=== PATIENT | female | born 1950 | race Caucasian/White ===

== ENCOUNTER 2017-01-05 08:24 | Emergency (ER) | payer MEDICARE, OTHER ==
[~2017-01-05] VITALS: Ht 160 cm; Wt 71.3 kg
[~2017-01-05 08:24] MED LIST: LISI-420 PO; [UNRECOGNIZED DRUG - CODE] PO
[2017-01-05 08:28] VITALS: BP 133/77
--- NOTE | 2017-01-05 08:38 | NUR ---
PATIENT PRESENTS TO ED WITH DYSURIA, BURNING PAIN UPON MICTURATING X2 DAYS, FREQUENCY AND URNGENCY . PT STATES . DENIES N/V/D; SKIN IS PINK/WARM/DRY; AAOX4 WITH EVEN AND STEADY GAIT; LUNGS CLEAR BL; HR EVEN AND REGULAR; PT DENIES ANY FEVER, CP, SOB, OR COUGH AT THIS TIME; PATIENT STATES PAIN OF 9/10 AT THIS TIME; VSS; PATIENT POSITIONED FOR COMFORT; HOB ELEVATED; BEDRAILS UP X2; BED DOWN. ER MD MADE AWARE OF PT STATUS.
[2017-01-05 10:00] VITALS: BP 132/84
== END 2017-01-05 10:00 | disposition home or self-care (01) ==
LOC: MED 08:24
DX: N39.0 Urinary tract infection, site not specified (principal); E11.9 Type 2 diabetes mellitus without complications; I10 Essential (primary) hypertension; Z90.710 Acquired absence of both cervix and uterus; Z85.42 Personal history of malignant neoplasm of other parts of uterus
CPT/HCPCS: 82948; 99283

== ENCOUNTER 2017-09-02 15:02 | Emergency (ER) | payer MEDICARE, OTHER ==
[~2017-09-02] VITALS: Ht 160 cm; Wt 73.9 kg
[2017-09-02 15:04] VITALS: BP 149/79
--- NOTE | 2017-09-02 15:08 | NUR ---
REPORT GIVEN TO MARTIN MARSHALL.
--- NOTE | 2017-09-02 15:10 | NUR ---
66f bib self with c/o painful urination x 2 days. Patient denies any hematuria, n/v/d, or fevers. Pt is aox4 with steady gait. GCS=15. RR are even and unlabored. Awaiting er md hines. VSS. Will continue to monitor.
[2017-09-02 15:55] LABS: APPEARANCE,URINE HAZY (CLEAR); BILIRUBIN,URINE NEGATIVE (NEGATIVE); BLOOD, URINE 1+ (NEGATIVE); COLOR,URINE YELLOW (YELLOW); LEUKOCYTE ESTERASE ,URINE 2+ (NEGATIVE); NITRITE, URINE NEGATIVE (NEGATIVE); UGLUCOSE NEGATIVE (NEGATIVE)
[2017-09-02 16:07] LABS: RBC,URINE 0-5 (RARE) /HPF (0-5); WBC,URINE 80-100 /HPF (0-5)
[2017-09-02] MEDS ORDERED: PHENAZOPYRIDINE 100 MG TAB PO ONE (16:10)
[2017-09-02] MEDS ORDERED: cefTRIAXone 1,000 MG in LIDOCAINE MPF 1% - **ER/OR** 2.1 ML IM ONE (16:10)
[2017-09-02] MEDS ORDERED: cefTRIAXone 1,000 MG VIAL ONE (16:28)
[2017-09-02] MEDS ORDERED: LIDOCAINE 1% 50 ML ONE (16:30)
--- NOTE | 2017-09-02 17:03 | NUR ---
Patient discharged with v/s stable. Written and verbal after care instructions given and explained. Patient alert, oriented and verbalized understanding of instructions. Ambulatory with steady gait. All questions addressed prior to discharge. ID band removed. Patient advised to follow up with PMD. Rx of Macrobid and phenazopyridine hydrochloride given. Patient educated on indication of medication including possible reaction and side effects. Opportunity to ask questions provided and answered.
[2017-09-02 17:04] VITALS: BP 136/63
== END 2017-09-02 17:03 | disposition home or self-care (01) ==
LOC: MED 15:02
DX: N39.0 Urinary tract infection, site not specified (principal); E11.9 Type 2 diabetes mellitus without complications; I10 Essential (primary) hypertension; Z79.899 Other long term (current) drug therapy
CPT/HCPCS: 81001; 87086; 87186; 96372; 99284; J0696; J2001

== ENCOUNTER 2017-11-20 16:41 | Emergency (ER) | payer MEDICARE, OTHER ==
[~2017-11-20] VITALS: Ht 160 cm; Wt 73.9 kg
[2017-11-20 16:56] VITALS: BP 170/89
--- NOTE | 2017-11-20 17:01 | NUR ---
er md mendoza in triage evaluating patient
--- NOTE | 2017-11-20 17:05 | NUR ---
patient to chair in view of triage room to monitor patient. patient instructed to inform triage nurse in change of status. er md mendoza and propellant charge loader oh davis made aware.
--- NOTE | 2017-11-20 17:10 | NUR ---
bib daughter with c/o "facial stiffness" since today around with hypertension. Clear speech. Facial symmetry to left side of face. Patient with steady gait. GCS=15. PERRLA. Equal refrigerator room clerk to bl arms and equal push/pull to bl legs. Patient denies any headache. PT DENIES SOB, FEVER, CP AT THIS MOMENT. MD MADE AWARE OF PT STATUS, FAMILY AT BEDSIDE.
[2017-11-20] MEDS ORDERED: DEXAMETHASONE 10 MG/ML VIAL IM ONE (17:15)
--- NOTE | 2017-11-20 17:39 | NUR ---
PT TO CT VIA WHEELCHAIR WITH NHUNG MOORE
[2017-11-20 19:01] VITALS: BP 143/89
--- NOTE | 2017-11-20 19:02 | NUR ---
Patient discharged with v/s stable. Written and verbal after care instructions given and explained. Patient alert, oriented and verbalized understanding of instructions. Ambulatory with steady gait. All questions addressed prior to discharge. ID band removed. Patient advised to follow up with PMD. Rx of LACRILUBE/ACYCLOVIR/PREDNISONE given. Patient educated on indication of medication including possible reaction and side effects. Opportunity to ask questions provided and answered.
== END 2017-11-20 19:02 | disposition home or self-care (01) ==
LOC: MED 16:41
DX: G51.0 Bell's palsy (principal); I10 Essential (primary) hypertension; E11.9 Type 2 diabetes mellitus without complications; Z79.899 Other long term (current) drug therapy
CPT/HCPCS: 70450; 96372; 99284; J1100

== ENCOUNTER 2019-09-17 14:56 | Emergency (ER) | payer MEDICARE, OTHER ==
[~2019-09-17] VITALS: Ht 160 cm; Wt 70.3 kg
[2019-09-17 15:05] VITALS: BP 156/71
--- NOTE | 2019-09-17 15:50 | NUR ---
C/O HEADACHE X 3 DAYS. PT STATES SHE ALSO HAS A FORHEAD RASH. DENIES TRAUMA OR N/V/D. UNSURE HOW RASH STARTED. DENIES NEW SOAP, FOODS, OR ALLERGIES. STATES RASH IS VERY PAIN FUL TO TOUCH. PT ALERT AND AWAKE, PRIMARILY LATVIAN SPEAKING. AMBULATORY MED HX: HTN
--- NOTE | 2019-09-17 15:58 | NUR ---
DR BUNDY AT BEDSIDE
[2019-09-17 16:06] VITALS: BP 143/67
--- NOTE | 2019-09-17 16:06 | NUR ---
Patient discharged with v/s stable. Written and verbal after care instructions given and explained IN ITALIAN/ICELANDIC. Patient alert, oriented and verbalized understanding of instructions. Ambulatory with steady gait. All questions addressed prior to discharge. ID band removed. Patient advised to follow up with PMD. Rx of NORCO AND ACYCLOVIR given. Patient educated on indication of medication including possible reaction and side effects. Opportunity to ask questions provided and answered. PT STATES NO FURTHER QUESTIONS
== END 2019-09-17 16:06 | disposition home or self-care (01) ==
LOC: MED 14:56
DX: B02.9 Zoster without complications (principal); E11.9 Type 2 diabetes mellitus without complications; I10 Essential (primary) hypertension; G51.0 Bell's palsy; Z90.710 Acquired absence of both cervix and uterus; Z79.84 Long term (current) use of oral hypoglycemic drugs; Z79.899 Other long term (current) drug therapy
CPT/HCPCS: 99283

== ENCOUNTER 2019-12-17 18:02 | Emergency (ER) | payer MEDICARE, OTHER ==
[~2019-12-17] VITALS: Ht 167.6 cm; Wt 61.2 kg
[2019-12-17 18:10] VITALS: BP 137/75
--- NOTE | 2019-12-17 18:14 | NUR ---
69 Y/O FEMALE C/O DYSURIA AND FREQUENCY X1 DAY, PAIN IS 8/10 DURING URINATION. SLIGHT FLANK PAIN. DENIES ANY N/V/D. AFEBRILE PMH: DM, HTN NKA
--- NOTE | 2019-12-17 18:34 | NUR ---
Dr. Coles assessing pt at bedside.
[2019-12-17] MEDS ORDERED: PHENAZOPYRIDINE 100 MG TAB PO ONE (18:40)
[2019-12-17 18:50] LABS: BILIRUBIN,URINE NEGATIVE (NEGATIVE); BLOOD, URINE 2+ (NEGATIVE); COLOR,URINE YELLOW (YELLOW); LEUKOCYTE ESTERASE ,URINE 2+ (NEGATIVE); NITRITE, URINE NEGATIVE (NEGATIVE); UGLUCOSE NEGATIVE (NEGATIVE)
[2019-12-17 18:54] VITALS: BP 137/75
--- NOTE | 2019-12-17 18:54 | NUR ---
Patient discharged with v/s stable. Written and verbal after care instructions given and explained. Patient alert, oriented and verbalized understanding of instructions. Ambulatory with steady gait. All questions addressed prior to discharge. ID band removed. Patient advised to follow up with PMD. Rx of KEFLEX, PHENAZOPYRIDINE given. Patient educated on indication of medication including possible reaction and side effects. Opportunity to ask questions provided and answered.
[2019-12-17 18:59] LABS: WBC,URINE 80-100 /HPF (0-5)
[2019-12-17 19:00] LABS: APPEARANCE,URINE SLIGHTLY CLOUDY (CLEAR); RBC,URINE 11-20 (MOD) /HPF (0-5)
--- NOTE | 2019-12-20 20:41 | NUR ---
late entry---- Dr. Nicholson made aware of Urine C/S results. treatment appropriate. no further action necessary.
== END 2019-12-17 18:54 | disposition home or self-care (01) ==
LOC: MED 18:02
DX: N39.0 Urinary tract infection, site not specified (principal); E11.9 Type 2 diabetes mellitus without complications; I10 Essential (primary) hypertension; Z90.710 Acquired absence of both cervix and uterus; Z79.84 Long term (current) use of oral hypoglycemic drugs; Z79.899 Other long term (current) drug therapy
CPT/HCPCS: 81001; 87086; 87186; 99283

== ENCOUNTER 2020-07-31 11:51 | Emergency (ER) | payer MEDICARE, OTHER ==
[~2020-07-31] VITALS: Ht 162.6 cm; Wt 72.6 kg
[~2020-07-31 11:51] MED LIST changes: -LISI-420 PO; +LISI20TA29 PO
--- NOTE | 2020-07-31 11:54 | NUR ---
Patient to bed 10. RN evaluating the patient at bedside.
--- NOTE | 2020-07-31 12:00 | NUR ---
69 Y/O FEMALE BIB DAUGHTER C/O CHEST PAIN X3 DAYS. PT WENT TO [facility] TODAY AND WAS SENT HERE FOR EVALUATION. PT RATES PAIN 7/10 THAT IS PRESSURE LIKE AND RADIATES TO R SHOULDER/BACK. PT WAS GIVEN 362MG ASPIRIN AT [facility]. PT DENIES N/V/SOB. PT IS A/O X4 WITH EVEN AND UNLABORED RESPIRATIONS. PT IN GOWN AND ATTACHED TO MAIL CLERK BILLS. BED IN LOWEST POSITION, BRAKES LOCKED, X1 SIDERAIL UP. NAURUAN SPEAKING PMH: HTN, HYPOTHYTROIDISM, HLD NKDA
--- NOTE | 2020-07-31 12:01 | NUR ---
EMT AT BEDSIDE FOR EKG
[2020-07-31 12:02] VITALS: BP 166/56
--- NOTE | 2020-07-31 12:16 | NUR ---
DR SILVA AT BEDSIDE
--- NOTE | 2020-07-31 12:46 | NUR ---
telemetry tech at bedside.
[2020-07-31 12:48] LABS: BASOPHILS % (AUTO) 0.7 % (0.0-2.0); EOSINOPHILS # (AUTO) 0.2 K/uL (0-0.4); EOSINOPHILS % (AUTO) 2.7 % (0.0-4.0); HEMATOCRIT 39.3 % (36-48); HEMOGLOBIN 13.3 g/dL (12.0-16.0); LYMPHOCYTES # (AUTO) 1.8 K/uL (2.5-16.5); LYMPHOCYTES % (AUTO) 32.5 % (20.5-51.1); MEAN CORPUSCULAR HEMOGLOBIN 29 pg (27-31); MEAN CORPUSCULAR HGB CONC 34 g/dL (33-37); MEAN CORPUSCULAR VOLUME 86.1 fL (80-94); MONOCYTES # (AUTO) 0.3 K/uL (0.8-1.0); NEUTROPHILS # (AUTO) 3.3 K/uL (1.8-7.7); NEUTROPHILS % (AUTO) 59.1 % (42.2-75.2); PLATELET COUNT (AUTO) 183 K/uL (140-450); RED BLOOD CELL COUNT(AUTO) 4.57 MIL/uL (4.20-5.40); RED CELL DISTRIBUTION WIDTH 13.2 % (11.6-13.7); WHITE BLOOD COUNT (AUTO) 5.6 K/uL (4.8-10.8)
[2020-07-31 13:03] LABS: ALBUMIN 3.8 g/dL (3.4-5.0); ANION GAP 7.7 (8-16); CARBON DIOXIDE 31.5 mmol/L (21-32); CREATININE 0.9 mg/dL (0.6-1.3); POTASSIUM 4.2 mmol/L (3.5-5.1); TOTAL BILIRUBIN 0.3 mg/dL (0.0-1.0)
--- NOTE | 2020-07-31 13:20 | NUR ---
covering for Primary RN Kamini. pt is currently a/o x 4, gcs 15. VSS. does not appear to be in any distress at this moment.
--- NOTE | 2020-07-31 13:42 | NUR ---
PT AMBULATED TO RESTROOM WITH EVEN STEADY GAIT. PT BACK IN BED AND ATTACHED TO MONITOR.
[2020-07-31] MEDS ORDERED: IBUP-2213 PO (14:47)
[2020-07-31 15:09] VITALS: BP 136/54
== END 2020-07-31 15:10 | disposition home or self-care (01) ==
LOC: MED 11:51
DX: R07.89 Other chest pain (principal); I10 Essential (primary) hypertension; E03.9 Hypothyroidism, unspecified
CPT/HCPCS: 36415; 71045; 80053; 83880; 84484; 85025; 93005; 99285

== ENCOUNTER 2021-06-07 07:20 | Emergency (ER) | payer MEDICARE, OTHER ==
[~2021-06-07] VITALS: Ht 160 cm; Wt 72.1 kg
[~2021-06-07 07:20] MED LIST changes: +IBUP-2213 PO
[2021-06-07 07:24] VITALS: BP 137/73
--- NOTE | 2021-06-07 07:35 | NUR ---
70 Y/O F AMBULATED TO BED 3, C/O PAINFUL URINATION X5 DAYS WITH FREQUENCY. DENIES BLOOD IN URINE. PT SENT TO RESTROOM FOR URINE COLLECTION. MEDHX: DM, HTN, HYPOTHYROID NKA
--- NOTE | 2021-06-07 07:45 | NUR ---
URINE DIP, AND SENT URINE TO LAB AT THIS TIME HANDED TO HELP DESK REP
[2021-06-07] MEDS ORDERED: CEPH-588 PO (07:52)
[2021-06-07 07:59] LABS: APPEARANCE,URINE CLOUDY (CLEAR); BILIRUBIN,URINE NEGATIVE (NEGATIVE); BLOOD, URINE 2+ (NEGATIVE); COLOR,URINE YELLOW (YELLOW); LEUKOCYTE ESTERASE ,URINE 2+ (NEGATIVE); NITRITE, URINE POSITIVE (NEGATIVE); PH,URINE 5.5 (5.0-9.0); UGLUCOSE TRACE (NEGATIVE)
[2021-06-07 08:00] VITALS: BP 137/73
[2021-06-07] MEDS ORDERED: cefTRIAXone 1,000 MG in LIDOCAINE MPF 1% 2.1 ML IM ONE (08:00)
[2021-06-07 08:08] LABS: RBC,URINE 11-20 (MOD) /HPF (0-5); WBC,URINE >25 (MANY) /HPF (0-5)
[2021-06-07 08:09] LABS: CALCIUM OXALATE CRYSTALS,UR None Seen /HPF (None Seen); TRICHOMONAS,URINE None Seen /HPF (None Seen); URIC ACID CRYSTALS,URINE None Seen /HPF (None Seen); YEAST,URINE None Seen /HPF (None Seen)
[2021-06-07 08:10] LABS: COARSE GRANULAR CASTS,URINE None Seen /LPF (None Seen); FINE GRANULAR CASTS,URINE None Seen /LPF (None Seen); HYALINE CASTS, URINE None Seen /LPF (None Seen); OTHER CASTS, URINE None Seen /LPF (None Seen); OTHER CRYSTALS,URINE None Seen /HPF (None Seen); RED BLOOD CELL CASTS,URINE None Seen /LPF (None Seen); TRIPLE PHOSPHATE CRYSTAL,UR None Seen /HPF (None Seen); URINE AMORPHOUS URATE 3+ /HPF (None Seen); WAXY CASTS,URINE None Seen /LPF (None Seen)
== END 2021-06-07 08:00 | disposition home or self-care (01) ==
LOC: MED 07:20
DX: N39.0 Urinary tract infection, site not specified (principal); I10 Essential (primary) hypertension; E07.9 Disorder of thyroid, unspecified
CPT/HCPCS: 81001; 87086; 99283

== ENCOUNTER 2022-02-02 19:37 | Emergency (ER) | payer MEDICARE, OTHER ==
[~2022-02-02] VITALS: Ht 160 cm; Wt 71.7 kg
[~2022-02-02 19:37] MED LIST changes: +CEPH-588 PO
[2022-02-02 20:04] VITALS: BP 131/56
--- NOTE | 2022-02-02 20:08 | NUR ---
WALKED IN C/O LEFT UPPER LEG SWELLING XTODAY. +NAUSEA AND DIZZINESS. DENIES CP, SOB. STATES SHE TOOK MOTRIN @9AM TODAY. PMH DM, HTN, HYPOTHYROID.
--- NOTE | 2022-02-02 21:29 | NUR ---
PT AMB TO BED 09.
--- NOTE | 2022-02-02 21:50 | NUR ---
Patient lying in bed, A/Ox4, chest rise and fall symmetrical, no s/s of distress.
--- NOTE | 2022-02-02 22:03 | NUR ---
Dr. Mohan examining patient.
[2022-02-02] MEDS ORDERED: ACET-8386 PO (22:10)
[2022-02-02] MEDS ORDERED: CEPH-588 PO (22:10)
[2022-02-02] MEDS ORDERED: IBUP-2213 PO (22:10)
[2022-02-02 22:35] VITALS: BP 128/62
--- NOTE | 2022-02-02 22:35 | NUR ---
Patient discharged with v/s stable. Written and verbal after care instructions given and explained for Cellulitis. Patient alert, oriented and verbalized understanding of instructions. Ambulatory with steady gait. All questions addressed prior to discharge. ID band removed. Patient advised to follow up with PMD. Rx of Keflex, Ibuprofen and [place] given. Patient educated on indication of medication including possible reaction and side effects. Opportunity to ask questions provided and answered.
== END 2022-02-02 22:35 | disposition home or self-care (01) ==
LOC: MED 19:37
DX: L03.116 Cellulitis of left lower limb (principal); E11.9 Type 2 diabetes mellitus without complications; I10 Essential (primary) hypertension; E03.9 Hypothyroidism, unspecified; Z79.899 Other long term (current) drug therapy; Z90.710 Acquired absence of both cervix and uterus
CPT/HCPCS: 99283

== ENCOUNTER 2023-01-13 08:23 | Emergency (ER) | payer OTHER ==
[~2023-01-13] VITALS: Ht 160 cm; Wt 72.1 kg
[~2023-01-13 08:23] MED LIST changes: +ACET-8905 PO
[2023-01-13 08:58] VITALS: BP 124/68; PULSE 75; RESP 18; TEMP 98.1; O2SAT 99
[2023-01-13 09:14] VITALS: BP 124/68; PULSE 75; RESP 18; TEMP 98.1
[2023-01-13 09:15] VITALS: O2SAT 99
[2023-01-13 09:30] LABS: APPEARANCE,URINE CLOUDY (CLEAR); BILIRUBIN,URINE NEGATIVE (NEGATIVE); BLOOD, URINE 2+ (NEGATIVE); LEUKOCYTE ESTERASE ,URINE 2+ (NEGATIVE); NITRITE, URINE POSITIVE (NEGATIVE); PH,URINE 5.5 (5.0-9.0); PROTEIN,URINE 2+ (NEGATIVE); UGLUCOSE NEGATIVE (NEGATIVE); UROBILINOGEN,URINE 0.2 EU/dL (0.2 - 1)
[2023-01-13 09:31] LABS: COLOR,URINE AMBER (YELLOW)
[2023-01-13] MEDS ORDERED: CEPH-588 PO (09:42)
[2023-01-13] MEDS ORDERED: PYR100 PO (09:42)
[2023-01-13 09:48] LABS: BACTERIA,URINE 10-30 (MOD) /HPF (None Seen); MUCUS,URINE 1+ /LPF (None Seen); RBC,URINE 11-20 (MOD) /HPF (0-5); SQUAMOUS EPITHELIAL CELL,UR 0-3 (FEW) /LPF (0-3 (FEW)); WBC,URINE 16-25 (MOD) /HPF (0-5)
== END 2023-01-13 10:02 | disposition home or self-care (01) ==
LOC: MED 08:23
DX: N39.0 Urinary tract infection, site not specified (principal); E11.9 Type 2 diabetes mellitus without complications; I10 Essential (primary) hypertension; Z79.899 Other long term (current) drug therapy
CPT/HCPCS: 81001; 87086; 99283

== ENCOUNTER 2023-10-04 05:25 | Emergency (ER) | payer OTHER ==
[~2023-10-04] VITALS: Ht 160 cm; Wt 72.1 kg
[~2023-10-04 05:25] MED LIST changes: +PYR100 PO
[2023-10-04 05:41] VITALS: BP 132/62; PULSE 91; RESP 16; TEMP 97.7; O2SAT 98
[2023-10-04 06:09] VITALS: O2SAT 98
[2023-10-04] MEDS: KETOROLAC 30 MG/ML VIAL IM ONE (06:29)
[2023-10-04 06:44] LABS: APPEARANCE,URINE CLEAR (CLEAR); BILIRUBIN,URINE 1+ (NEGATIVE); BLOOD, URINE 3+ (NEGATIVE); COLOR,URINE YELLOW (YELLOW); LEUKOCYTE ESTERASE ,URINE 2+ (NEGATIVE); NITRITE, URINE NEGATIVE (NEGATIVE); PROTEIN,URINE 3+ (NEGATIVE); UGLUCOSE NEGATIVE (NEGATIVE); UROBILINOGEN,URINE 0.2 EU/dL (0.2 - 1)
[2023-10-04 06:47] LABS: ICTOTEST POSITIVE (NEGATIVE)
[2023-10-04 06:48] LABS: BACTERIA,URINE >30 (MANY) /HPF (None Seen); MUCUS,URINE 1+ /LPF (None Seen); SQUAMOUS EPITHELIAL CELL,UR 0-3 (FEW) /LPF (0-3 (FEW)); WBC,URINE TOO MANY TO COUNT /HPF (0-5)
[2023-10-04] MEDS ORDERED: NITR100C7 PO (06:51)
[2023-10-04] MEDS ORDERED: TRAM-748 PO (06:51)
[2023-10-04] MEDS ORDERED: cefTRIAXone 500 MG VIAL ONE (06:59)
[2023-10-04] MEDS ORDERED: LIDOCAINE MPF 1% 5 ML ONE (06:59)
[2023-10-04] MEDS: cefTRIAXone 500 MG in LIDOCAINE MPF 1% 1 ML IM ONE (07:03)
== END 2023-10-04 07:07 | disposition home or self-care (01) ==
LOC: MED 05:25
DX: N39.0 Urinary tract infection, site not specified (principal); E11.9 Type 2 diabetes mellitus without complications; I10 Essential (primary) hypertension; Z79.1 Long term (current) use of non-steroidal anti-inflammatories (NSAID); Z79.2 Long term (current) use of antibiotics; Z79.84 Long term (current) use of oral hypoglycemic drugs; Z79.899 Other long term (current) drug therapy
CPT/HCPCS: 81001; 81025; 87086; 96372; 99284; J0696; J1885; J2001